=== PATIENT | female | born 1980 | race American Indian/Alaskan Native ===

== ENCOUNTER 2018-06-06 14:17 | Emergency (ER) | payer OTHER ==
[2018-06-06 14:23] VITALS: BP 150/70
--- NOTE | 2018-06-06 14:58 | Emergency Department Report ---
ED Laceration HPI - HPI Chief Complaint: Wound/Laceration Stated Complaint: CUT RT LEG Time Seen by Provider: 06/06/18 14:28 Occurred When: Today Location: Lower Extremity (leg) Severity: severe (8/10 and achy) Tetanus Status: Not up to Date Laceration Symptoms: Yes Pain (right lateral leg), No Foreign Body Sensation, No Numbness, No Weakness Other History: This is a 37-year-old female here reports that she has a laceration to her right leg from a sharp object on her carpet. She said after she had laceration she fell and injured her right ankle. Tetanus shot is not up -to-date. Pain is 8 out of 10 to leg and ankle. Pain is worse with movement better with rest. Denies any headache or head injury. Last menstrual period was 06/06/2018. Patient said ED Review of Systems ROS: Stated complaint: CUT RT LEG Other details as noted in HPI Constitutional: denies: chills, fever Eyes: denies: eye pain, eye discharge, vision change ENT: denies: ear pain, throat pain Respiratory: denies: cough, shortness of breath, SOB with exertion, SOB at rest , stridor, wheezing Cardiovascular: denies: chest pain, palpitations, edema, syncope Gastrointestinal: denies: abdominal pain, nausea, diarrhea Genitourinary: denies: urgency, dysuria, discharge Musculoskeletal: joint swelling, arthralgia. denies: back pain, myalgia Skin: other (laceration to right leg). denies: rash, lesions Neurological: denies: headache, weakness, paresthesias Psychiatric: denies: anxiety, depression Hematological/Lymphatic: denies: easy bleeding, easy bruising ED Past Medical Hx - Past Medical History Previous Medical History?: No - Surgical History Past Surgical History?: No - Family History Family history: hypertension - Social History Smoking Status: Never Smoker Substance Use Type: None - Medications Home Medications: Home Medications Medication Instructions Recorded Confirmed Last Taken Type Ibuprofen [Motrin] 600 mg PO Q8H PRN #12 tablet 06/06/18 Unknown Rx Sulfamethoxazole/Trimethoprim 1 each PO BID 5 Days #10 tablet 06/06/18 Unknown Rx [Bactrim DS TAB] Laceration Physical Exam - Exam General: Vital signs noted. No distress. Alert and acting appropriately. This is a 37-year-old female well-nourished well-developed in no acute distress. Wound Length (cm): 3 (see procedure note for details) Laceration Location: Lower Extremity (right lateral outer leg. Linear and superficial. Scant bleeding noted) Full Body Front + Back: 1 - Patient with 3 cm, superficial, linear laceration to right lateral outer leg. Tender to palpate with no erythema and scant bleeding. No signs of foreign body noted. Laceration Exam: Yes Normal Distal CMS (no clubbing, cyanosis or edema to her extremity except patient has swelling to right outer ankle with tenderness to palpate. She has full range of motion to all her extremities but reports pain with dorsiflexion of her right foot. She said she has pain in her right ankle. No joint crepitus. +2 pedal pulses bilaterally, patient with good color, sensation, movement and temperature to all extremities.), No Foreign Body, No Exposed Tendon, Vessel, or Nerve, No Tendon Injury ED Course Vital Signs 06/06/18 14:20 Temperature 98.3 F Pulse Rate 90 Respiratory 16 Rate Blood Pressure 150/70 O2 Sat by Pulse 100 Oximetry - Reevaluation(s) Reevaluation #1: 06/06/18 19:10 Patient given Clanton 10/325 mg by mouth 1 tablet for musculoskeletal pain which relieved her pain. She was given Boostrix 0.5 mL to update tetanus. Please refer to procedure note for details on splinting and laceration repair - Laceration /Wound Repair Right Lateral Leg Wound Location: lower extremity (laceration right lateral medial outer leg) Wound Length (cm): 3 Wound's Depth, Shape: superficial, linear Wound Explored: no foreign body removed Irrigated w/ Saline (ccs): 350 Betadine Prep?: Yes Anesthesia: 0.5% Sensorcaine Volume Anesthetic (ccs): 3 Wound Debrided: moderate Wound Repaired With: sutures Suture Size/Type: 3:0, proline Number of Sutures: 5 Sterile Dressing Applied?: Yes - Orthopedic Splinting/Casting Injury #1 Side: right Upper Extremity Immobilizer: Michael wrap Lower Extremity Injury Location: ankle Additional Comments: A similar good pedal pulses status post splint placement ED Medical Decision Making - Radiology Data Radiology results: report reviewed X-ray of right ankle and right tib-fib dictated by radiologist and reports reviewed by myself. Soft tissue swelling without any noted foreign body, fracture or dislocation. See reports below Patient: ANTON METZGER MR#: [id number] : 1980 Acct:[id number] Age/Sex: 37 / F ADM Date: 06/06/18 Loc: ED Attending Dr: Ordering Physician: SHILPI SINGH Date of Service: 06/06/18 Procedure(s): XR ankle 3+V RT Accession Number(s): [id number] cc: SHILPI SINGH Fluoro Time In Minutes: FINAL REPORT EXAM: XR ANKLE 3+V RT HISTORY: fall with pain and swelling rt ankle TECHNIQUE: Frontal, lateral, mortise views left ankle Comparison: X-ray right tibia/fibula also performed today FINDINGS: There is no evidence of fracture or subluxation. The mortise joint is maintained. The soft tissues are notable for soft tissue swelling at the level of the ankle. IMPRESSION: 1. Soft tissue swelling without plain film evidence of fracture or subluxation. Transcribed By: ED Dictated By: MOE MASSEY MD Electronically Authenticated By: MOE MASSEY MD Signed Date/Time: 06/06/18 1621 Patient: ANTON METZGER MR#: [id number] : 1980 Acct:[id number] Age/Sex: 37 / F ADM Date: 06/06/18 Loc: ED Attending Dr: Ordering Physician: SHILPI SINGH Date of Service: 06/06/18 Procedure(s): XR tibia fibula 2V RT Accession Number(s): [id number] cc: SHILPI SINGH Fluoro Time In Minutes: FINAL REPORT EXAM: XR TIBIA FIBULA 2V RT HISTORY: fall with laceration and pain and swelling rt leg TECHNIQUE: Frontal and lateral views right tibia and fibula Comparison: X-ray right ankle also performed today FINDINGS: There is no evidence of fracture or subluxation. The soft tissues are notable for soft tissue swelling on the lateral aspect of the ankle. IMPRESSION: 1. Soft tissue swelling without evidence of fracture or subluxation. Transcribed By: ED Dictated By: MOE MASSEY MD Electronically Authenticated By: MOE MASSEY MD Signed Date/Time: 06/06/181615 DD/ 15 TD/TT: 06/06/181615 - Medical Decision Making This is a 37-year-old female here report that she fell today and something sharp on her carpet at home cut her right leg and also that she has swelling to her right ankle. Reporting pain and laceration to right lower extremity. She did be reevaluated. Patient was seen and evaluated by myself and her physical exam is normal except she has a 3 cm laceration that is linear and superficial with minimal bleed into right outer lateral leg and minimal swelling to right outer ankle with some pain on range of motion. X-ray of right tib-fib and 3 views right ankle dictated by radiologist and report reviewed by myself. They show no fracture or dislocation and no mention of foreign body. Patient has soft tissue swelling to right ankle. X-ray report relayed to patient along with diagnosis and treatment plan and she was understanding. Pain is controlled Clanton. Please refer to procedure note for details on laceration repair. Patient is stable and she voiced understanding of her diagnosis. A/P Laceration right leg without complication-see procedure note for details. Patient placed on antibiotic up and discharged. Clanton 10/325 mg 1 tablet which relieved her pain and she was sent home on Motrin and will be sent home on Bactrim DS that she is allergic to penicillin and tetanus vaccine is updated. Contusion lower extremity-Rice therapy, Michael wrap and crutches. Accidental fall-dictated on fall prevention. Patient discharged home with her family in stable condition. Vital signs are stable she is a febrile and she was told to follow up with her primary care physician in 2-3 days and to return to emergency room in 7-10 days for suture removal. Instructions given on suture care, medication, x-ray results and diagnosis and she voiced understanding. D/C home with prescription for Motrin and Bactrim DS. - Differential Diagnosis fracture, strain, sprain, foreign body. Musculoskeletal pain Critical care attestation.: If time is entered above; I have spent that time in minutes in the direct care of this critically ill patient, excluding procedure time. ED Disposition Clinical Impression: Contusion, multiple sites Laceration of right lower leg without complication Qualifiers: Encounter type: initial encounter Qualified Code(s): S81.811A - Laceration without foreign body, right lower leg, initial encounter Accidental fall Qualifiers: Encounter type: initial encounter Qualified Code(s): W19.XXXA - Unspecified fall, initial encounter Disposition: TO HOME OR SELFCARE Is pt being admited?: No Does the pt Need Aspirin: No Condition: Stable Instructions: Suture Care (ED), Laceration (ED), Contusion in Adults (ED), Fall Prevention (ED) Additional Instructions: Please return to emergency room and 7-10 days to have stitches removed See discharge instruction in Rice therapy While all point U primary care physician in 2-3 days Follow-up with orthopedic doctor in 3-5 days Take Medication as prescribed Prescriptions: Ibuprofen [Motrin] 600 mg PO Q8H PRN #12 tablet PRN Reason: Pain Sulfamethoxazole/Trimethoprim [Bactrim DS TAB] 1 each PO BID 5 Days #10 tablet Referrals: PRIMARY CAREMD [Primary Care Provider] - 2-3 Days return to, emergency room [Other] - 7-10 days [facility] [Outside] - 3-5 Days BENJAMÍN MOCK MD [Staff Physician] - 3-5 Days Forms: Work/School Release Form(ED)
[2018-06-06] MEDS ORDERED: NORCO 10/325 PO ONE (15:18)
[2018-06-06] MEDS ORDERED: NACL 0.9% IR ONE (15:18)
[2018-06-06] MEDS ORDERED: BOOSTRIX IM ONE (15:18)
[2018-06-06] MEDS ORDERED: MARCAINE 0.5% INFILTRATI ONE (15:18)
--- NOTE | 2018-06-06 16:24 | XRay Report ---
FINAL REPORT EXAM: XR TIBIA FIBULA 2V RT HISTORY: fall with laceration and pain and swelling rt leg TECHNIQUE: Frontal and lateral views right tibia and fibula Comparison: X-ray right ankle also performed today FINDINGS: There is no evidence of fracture or subluxation. The soft tissues are notable for soft tissue swelling on the lateral aspect of the ankle. IMPRESSION: 1. Soft tissue swelling without evidence of fracture or subluxation.
--- NOTE | 2018-06-06 16:29 | XRay Report ---
FINAL REPORT EXAM: XR ANKLE 3+V RT HISTORY: fall with pain and swelling rt ankle TECHNIQUE: Frontal, lateral, mortise views left ankle Comparison: X-ray right tibia/fibula also performed today FINDINGS: There is no evidence of fracture or subluxation. The mortise joint is maintained. The soft tissues are notable for soft tissue swelling at the level of the ankle. IMPRESSION: 1. Soft tissue swelling without plain film evidence of fracture or subluxation.
== END 2018-06-06 19:45 | disposition home or self-care (01) ==
LOC: EDBD → ED 14:17
DX: S81.811A Laceration without foreign body, right lower leg, initial encounter (principal); Z79.899 Other long term (current) drug therapy; W26.8XXA Contact with other sharp object(s), not elsewhere classified, initial encounter; Y93.89 Activity, other specified; Y99.8 Other external cause status; Y92.89 Other specified places as the place of occurrence of the external cause
CPT/HCPCS: 90471; 90715